=== PATIENT | female | born 1960 | race Caucasian/White ===

== ENCOUNTER 2019-10-21 10:48 | Observation (INO) ==
[~2019-10-21 10:48] MED LIST: Buffered Lidocaine 1% SYRIN 1 ml INTRADERM ONE; Lactated Ringers 1000 ml BAG 1,000 ML IV SCH
[2019-10-21] MEDS ORDERED: Buffered Lidocaine 1% SYRIN 1 ml INTRADERM ONE (11:22)
[2019-10-21] MEDS ORDERED: ceFAZolin 2 GM PREMIX in ORs 2 GM/50 ML BAG ONE (11:22)
[2019-10-21] MEDS ORDERED: Ropivacaine 0.2% 2 MG/ML VIAL ONE (12:03)
[2019-10-21] MEDS ORDERED: ROPIVACAINE 5 MG/ML 30 ML BTL (0.5%) ONE (12:04)
[2019-10-21] MEDS ORDERED: fentaNYL 100 mcg/2 ml 50 MCG/ML VIAL ONE ×3 (12:15→15:37)
[2019-10-21] MEDS ORDERED: Midazolam 2 mg/2 ml VIAL 1 mg/ml 2 ml VIAL (2 mg) ONE (12:15)
[2019-10-21] MEDS ORDERED: Rocuronium 50 mg VIAL 10 mg/ml 5 ml VIAL (50 mg) ONE (12:58)
[2019-10-21] MEDS ORDERED: Metoclopramide 5 MG/ML VIAL (10 mg) ONE (13:56)
[2019-10-21] MEDS ORDERED: Acetaminophen IV 1 GM/100ML 100 ML ONE (14:14)
[2019-10-21] MEDS ORDERED: Bupivacaine 0.25% w/EPI 10 ML SDV ONE (14:34)
[2019-10-21] MEDS ORDERED: Bupivacaine 0.25% SDV PF* 10 ML VIAL INJ ONE (14:34)
[2019-10-21] MEDS ORDERED: diPHENhydraMINE 25 mg TAB PO PRN (15:17)
[2019-10-21] MEDS ORDERED: Ondansetron 4 mg VIAL 2 MG/ML 2 ml VIAL IV PRN (15:17)
[2019-10-21] MEDS ORDERED: Morphine 2 MG/ML SYRINGE IV PRN (15:17)
[2019-10-21] MEDS ORDERED: Ondansetron ODT 4 mg TAB 4 MG TAB PO PRN (15:17)
[2019-10-21] MEDS ORDERED: Lactulose 30 ml UDC PO PRN (15:17)
[2019-10-21] MEDS ORDERED: diPHENhydraMINE IV 50 MG/ML 1 ml VIAL (BENADRYL) IV PRN (15:17)
[2019-10-21] MEDS ORDERED: Magnesium Hydroxide LIQ 30 ML UDC PO PRN (15:17)
[2019-10-21] MEDS ORDERED: Naloxone 0.4 mg VIAL 0.4 mg/ml 1 ml VIAL IV PRN (15:29)
[2019-10-21] MEDS: fentaNYL 100 mcg/2 ml 50 MCG/ML VIAL IV PRN ×2 (15:38→15:53)
[2019-10-21] MEDS ORDERED: oxyCODONE/Acetamin 5/325 mg TAB ONE (16:01)
[2019-10-21] MEDS: oxyCODONE/Acetamin 5/325 mg TAB PO PRN ×2 (16:02→23:44)
[2019-10-21] MEDS: Lactated Ringers 1000 ml BAG 1,000 ML IV SCH (17:00)
[2019-10-21] MEDS: ceFAZolin 1 GM ADVAN(*) 1 GM in NS 0.9% 50 ML 50 ML IVPB SCH (21:35)
[2019-10-21] MEDS: Magnesium Hydroxide LIQ 30 ML UDC PO SCH (23:44)
[2019-10-22] MEDS: Lactated Ringers 1000 ml BAG 1,000 ML IV SCH (02:56)
[2019-10-22] MEDS: ceFAZolin 1 GM ADVAN(*) 1 GM in NS 0.9% 50 ML 50 ML IVPB SCH ×2 (04:13→13:20)
[2019-10-22] MEDS: oxyCODONE/Acetamin 5/325 mg TAB PO PRN ×3 (06:06→14:14)
[2019-10-22] MEDS ORDERED: LUBIPROSTONE 8 MCG PO SCH (09:00)
[2019-10-22] MEDS ORDERED: Vitamin THERAPEUTIC TAB PO SCH (09:00)
[2019-10-22] MEDS: Magnesium Hydroxide LIQ 30 ML UDC PO SCH (09:19)
[2019-10-22 09:55] LABS: Hematocrit 30 % (35-47); Hemoglobin 10.5 g/dL (12.0-16.0); Mean Platelet Volume 8.9 fL (7.4-10.4); Platelet Count 215 10^3/uL (150-450)
[2019-10-22 10:11] LABS: BUN/Creatinine Ratio 16.5 (8-20); Calcium 8.7 mg/dL (8.6-10.3); EGFR African American 89.5 (>60)
[2019-10-22 11:34] VITALS: BP 116/54
== END 2019-10-22 15:00 | disposition home or self-care (01) ==
LOC: OR 10:48 → SSU 10:48
PROVIDERS: ADMIT Orthopaedic Surgery Adult Reconstructive Orthopaedic Surgery; ATTEND Orthopaedic Surgery Adult Reconstructive Orthopaedic Surgery